=== PATIENT | female | born 1985 | race Caucasian/White ===

== ENCOUNTER 2022-03-14 18:23 | Emergency (ER) | payer MEDICAID ==
[~2022-03-14] VITALS: Ht 149.9 cm; Wt 91.2 kg
[2022-03-14 18:40] VITALS: BP_SYST 109
--- NOTE | 2022-03-14 21:00 | NUR ---
Patient presents to ED from home with c/o dysuria x2 days. Patient reports pain 3/10 in lower abd at this time. Patient is 5 months . Patient has no PMH. Patient A/Ox4, VSS, ambulatory, resp even and unlabored. Nad noted at this time. ER MD [place] made aware.
--- NOTE | 2022-03-14 22:30 | NUR ---
Urine sample obtained and taken to lab.
--- NOTE | 2022-03-14 23:00 | NUR ---
ER MD Good examining patient.
[2022-03-14] MEDS ORDERED: PHEN-726 PO (23:17)
[2022-03-14] MEDS ORDERED: NITR-85 PO (23:17)
[2022-03-14 23:26] LABS: BILIRUBIN,URINE NEGATIVE (NEGATIVE); BLOOD, URINE 2+ (NEGATIVE); CLARITY/URINE CLOUDY (CLEAR); COLOR,URINE YELLOW (YELLOW); GLUCOSE,URINE NEGATIVE (NEGATIVE); KETONES,URINE NEGATIVE (NEGATIVE); LEUKOCYTE ESTERASE ,URINE 3+ (NEGATIVE); NITRITE, URINE POSITIVE (NEGATIVE); PH,URINE 5.5 (5.0-8.0); PROTEIN URINE TRACE (NEGATIVE); UROBILINOGEN,URINE 0.2 (0.2-1.0)
[2022-03-14 23:40] LABS: BACTERIA,URINE MANY /HPF (None Seen); WBC,URINE 20-50 /HPF (0-3)
[2022-03-14 23:55] VITALS: BP_SYST 109
--- NOTE | 2022-03-14 23:55 | NUR ---
Patient given written and verbal discharge instructions and verbalizes understanding. ER MD discussed with patient the results and treatment provided. Patient in stable condition. ID arm band removed. IV catheter removed intact and dressing applied, no active bleeding. Rx of Pyridium and Macrobid given. Patient educated on pain management and to follow up with PMD. Pain Scale 2/10. Opportunity for questions provided and answered. Medication side effect fact sheet provided. Patient A/Ox4, VSS, ambulatory, resp even and unlabored. Nad noted at this time. Patient in stable condition upon discharge.
[2022-03-15] MEDS ORDERED: NITROFURANTOIN MONOHYD/M-CRYST 100 MG CAPSULE (MacroBID) PO ONE
== END 2022-03-14 23:55 | disposition home or self-care (01) ==
LOC: SED 18:23
DX: N39.0 Urinary tract infection, site not specified (principal); R30.0 Dysuria; R35.0 Frequency of micturition; Z79.899 Other long term (current) drug therapy
CPT/HCPCS: 81000; 87086; 99283

== ENCOUNTER 2022-03-27 15:21 | Emergency (ER) | payer MEDICAID ==
[~2022-03-27 15:21] MED LIST: NITR-85 PO; PHEN-726 PO
== END 2022-03-27 18:00 | disposition home or self-care (01) ==
LOC: SED 15:21
DX: N75.1 Abscess of Bartholin's gland (principal); Z53.21 Procedure and treatment not carried out due to patient leaving prior to being seen by health care provider